=== PATIENT | female | born 1985 | race African-American/Black ===

== ENCOUNTER 2017-12-27 16:56 | Emergency (ER) | payer OTHER ==
[~2017-12-27] VITALS: Ht 154.9 cm; Wt 81.7 kg
[2017-12-27 18:24] LABS: HEMATOCRIT 41.5 % (36.0-46.0); HEMOGLOBIN 13.2 G/DL (11.9-15.5); MCH 26.5 PG (29.0-34.0); MCHC 31.8 G/DL (30.0-36.0); MCV 83.2 FL (83-99); PLATELET COUNT 295 K/uL (156-360); RBC DIS.WIDTH-CV 18.2 % (11.8-14.6); RBC DIS.WIDTH-SD 44.7 % (39-53); RED BLOOD COUNT 4.99 M/uL (3.80-5.20); WHITE BLOOD COUNT 13.5 K/uL (4.1-10.2)
[2017-12-27 18:40] LABS: CHLORIDE 106 mEq/L (99-109); POTASSIUM 4.3 mEq/L (3.7-5.4); SODIUM 138 mEq/L (136-147)
[2017-12-27 18:41] LABS: GLUCOSE 79 mg/dL (70-99)
[2017-12-27 18:45] LABS: CREATININE 0.8 mg/dL (0.6-1.3); GFR ESTIMATE (CALCULATED) > 59 mL/min/
[2017-12-27] MEDS ORDERED: KEFLEX500 MG PO (18:45)
[2017-12-27 18:46] LABS: UREA NITROGEN (BUN) 9 mg/dL (9-23)
[2017-12-27 18:56] VITALS: BP 121/76
== END 2017-12-27 18:57 | disposition home or self-care (01) ==
LOC: EME 16:56
PROVIDERS: Physician Assistant
DX: L03.113 Cellulitis of right upper limb (principal)
CPT/HCPCS: 80048; 85027; 87070; 87075; 87077; 87147; 87186; 87205; 99281; 99284